=== PATIENT | male | born 1930 | race Caucasian/White ===

== ENCOUNTER 2021-12-05 07:40 | Emergency (ER) | payer MEDICARE, OTHER ==
[2021-12-05 08:11] LABS: BASOPHIL 0.6 % (0-2); EOSINOPHIL 0.6 % (0-7); HCT 42.3 % (42.0-52.0); HGB 14.1 g/dl (13.2-18.0); LYMPHOCYTE 10.5 % (15-48); MCH 32.8 pg (25.0-31.0); MCHC 33.3 g/dL (32.0-36.0); MCV 98.4 fL (78.0-100.0); MONOCYTE 18.2 % (0-12); MPV 10.9 fL (6.0-9.5); NEUTROPHIL 69.9 % (41-80); NRBC 0; PLT 128 K/uL (150-400); RDW 12.7 % (11.5-14.0)
[2021-12-05 09:01] LABS: INFLUENZA A NAA NEGATIVE (NEGATIVE)
[2021-12-05 09:05] LABS: CORONAVIRUS 2019 SARS-COV-2 POSITIVE (NEGATIVE)
[2021-12-05 09:11] LABS: BILIRUBIN NEGATIVE (NEGATIVE); BLOOD 2+ Ery/uL (NEGATIVE); CLARITY CLEAR (CLEAR); COLOR YELLOW (YELLOW); GLUCOSE (U) NORMAL (NORMAL); LEUKOCYTES NEGATIVE Leu/uL (NEGATIVE); NITRITE NEGATIVE (NEGATIVE); PROTEIN TRACE (LOW) mg/dL (NEGATIVE); SPECIFIC GRAVITY >=1.030 (1.001-1.030); UROBILINOGEN 0.2 mg/dL (0.2-1.0); pH 5.5 (5.0-9.0)
[2021-12-05 09:23] LABS: BACTERIA TRACE; URINARY WBC RARE
[2021-12-05 09:30] LABS: ALBUMIN 3.8 g/dL (3.4-5.0); BUN/CREAT RATIO (CALC) 20.9 RATIO; C-REACTIVE PROTEIN 1.6 mg/dL (<=0.90); CREATININE 0.91 mg/dL (0.67-1.17); FT4 (FREE T4) 1.2 ng/dL (0.76-1.46); GLOBULIN (CALCULATION) 3.7 g/dL; MAGNESIUM 1.8 mg/dL (1.8-2.4); POTASSIUM 4.1 mmol/L (3.5-5.1); TOTAL PROTEIN 7.5 g/dL (6.4-8.2)
[2021-12-05] MEDS ORDERED: PAXLOVID CO-PA1 EAC1 PO (10:11)
== END 2021-12-05 10:43 | disposition home or self-care (01) ==
LOC: FER 07:40
PROVIDERS: Emergency Medicine
DX: U07.1 COVID-19 (principal); I48.91 Unspecified atrial fibrillation; Z79.01 Long term (current) use of anticoagulants; Z79.899 Other long term (current) drug therapy
CPT/HCPCS: 36415; 71045; 80053; 81001; 82728; 83735; 83880; 84145; 84439; 84443; 84484; 85025; 86140; 93005; J7030; U0002